=== PATIENT | female | born 1945 | race Caucasian/White ===

== ENCOUNTER → 2024-01-14 | Outpatient (CLI) | payer MEDICARE ==
[2024-01-14 13:24] VITALS: BP 154/82; PULSE 60; RESP 16; TEMP 97.6
--- NOTE | 2024-01-14 14:29 | P.SLEEP ---
History of Present Illness H&P Date: 01/14/24 This is a pleasant 78-year-old male female patient, referred to me for sleep apnea evaluation. The significant other is very much concerned about her having sleep apnea as the patient is having loud snoring. He also describes some unusual and erratic breathing at nighttime. He is not absolutely sure whether she quits breathing at nighttime. The patient's sleep is fragmented and the patient had to wake up at least 3-4 times the middle of the night to urinate. She goes to bed at around 10 PM wakes up 6 AM in the morning and she denies having any major hypersomnia or sleepiness during the day. Her current Stevens[place] score is at 8. No restlessness in her lower extremities. Denies waking up choking or gasping for air. No sleepwalking. No sleep talking. No anxiety. No panic attacks. No nocturnal heartburns. No symptoms of deficits with memory and concentration and attention. On average, the patient is sleeping around 7 to 8 hours. She sleeps on her side. She is an old milligram. She may take occasional naps during the day. Her current weight is stable and the patient denies having any significant weight gain over the years. She drinks alcohol socially. No substance abuse. No smoking. She has undergone previous right thoracotomy and decortication following a complicated right lung pneumonia. Her other comorbidities include hypertension hyperlipidemia. No issues with chronic pain. No personal or family history of obstructive sleep apnea. Review of Systems Constitutional: Reports fatigue Eyes: denies as per HPI, denies blurred vision, denies bulging eye, denies decreased vision, denies diplopia, denies discharge, denies dry eye, denies irritation, denies itching, denies pain, denies photophobia, denies loss of peripheral vision, denies loss of vision, denies tunnel vision/blind spots Ears: deny: decreased hearing, ear discharge, earache, tinnitus Ears, nose, mouth and throat: Reports as per HPI Breasts: absent: as per HPI, change in shape, gynecomastia, masses, nipple discharge, pain, skin changes, swelling Cardiovascular: Reports as per HPI Respiratory: Reports snoring Gastrointestinal: Reports as per HPI Genitourinary: Reports as per HPI Menstruation: Reports as per HPI Musculoskeletal: Reports as per HPI Musculoskeletal: absent: ankle pain, ankle stiffness, ankle swelling, as per HPI, elbow pain, elbow stiffness, elbow swelling, foot pain, foot stiffness, foot swelling, hand pain, hand stiffness, hand swelling, hip pain, hip stiffness, hip swelling, knee pain, knee stiffness, knee swelling, shoulder pain, shoulder stiffness, shoulder swelling, wrist pain, wrist stiffness, wrist swelling Integumentary: Reports as per HPI Neurological: Reports as per HPI Psychiatric: Reports as per HPI Endocrine: Reports as per HPI Hematologic/Lymphatic: Reports as per HPI Allergic/Immunologic: Reports as per HPI Past Medical History Past Medical History: Diabetes Mellitus, Hyperlipidemia, Hypertension Additional Past Medical History / Comment(s): over weight, diet controlled diabetic no meds History of Any Multi-Drug Resistant Organisms: None Reported Additional Past Surgical History / Comment(s): cataract surgery both eys Past Anesthesia/Blood Transfusion Reactions: No Reported Reaction Past Psychological History: No Psychological Hx Reported Smoking Status: Never smoker Past Alcohol Use History: Occasional Past Drug Use History: None Reported - Past Family History Mother Family Medical History: Cancer Father Family Medical History: Cancer, Hypertension Additional Family Medical History / Comment(s): parkinsons Medications and Allergies Home Medications and Allergies Comment(s): Medication includes enalapril 20 mg p.o. daily, Norvasc 10 mg p.o. daily, Zocor 10 mg p.o. daily, omeprazole 20 mg p.o. daily, Coreg 3.125 mg twice a day, vitamin D 2000 units daily and aspirin 81 mg p.o. daily. Physical Exam Vitals: Vital Signs Temp Pulse Resp BP Pulse Ox 01/14/24 13:23 97.6 F 60 16 154/82 97 Intake and Output 01/13/24 01/14/24 01/14/24 22:59 06:59 14:59 Other: Weight 87.543 kg The patient appeared well nourished and normally developed. Vital signs as documented. Calm and comfortable with a body mass index of 36.2 Head exam is unremarkable. No scleral icterus or corneal arcus noted. Neck is without jugular venous distension, thyromegaly, or carotid bruits. Carotid upstrokes are brisk bilaterally. The patient has a Mallampati class IV with crowding of the posterior pharynx. Lungs are clear to auscultation and percussion. Cardiac exam reveals the PMI to be normally sized and situated. Rhythm is regular. First and second heart sounds normal. No murmurs, rubs or gallops. Abdominal exam reveals normal bowel sounds, no masses, no organomegaly and no aortic enlargement. Extremities are nonedematous and both femoral and pedal pulses are normal. Examination of the skin revealed no evidence of significant rashes, suspicious appearing nevi or other concerning lesions. Neurologically, the patient is awake and alert and the patient does not have any focal neurological deficit. Cranial nerves are essentially intact. Assessment and Plan Plan: Loud snoring with questionable witnessed apneas as reported by significant other. Limited hypersomnia with an Stevens[place] score of 8. Rather mild obstructive sleep apnea. Body mass index of 36.2, no recent weight gain Chronic tiredness and fatigue Hypertension Hyperlipidemia Previous history of right lung decortication following a complicated right lobe pneumonia. Surgery was done back in 2016 Plan Overall clinical suspicion for sleep apnea is low. Will proceed with screening polysomnography Encourage sleeping on his side and keeping the head of the bed elevated Avoid alcohol drinking at least 3 hours prior to going to bed Maintain good sleep hygiene measures Maintain regular sleep schedule Will make further recommendations based on the results of the PSG Will follow Sleep Note - Sleep Data ESS Total: 8 - Sleep Note Sleep Note: Temperature: 97.6 F Pulse Rate: 60 Respiratory Rate: 16 Blood Pressure: 154/82 SpO2: 97 Height: 5 ft 1 in Weight: 87.543 kg BMI: Neck Circumference: 15
== END ==
LOC: 3 N SLEEP 13:09
PROVIDERS: ATTEND Internal Medicine Critical Care Medicine
DX: G47.33 Obstructive sleep apnea (adult) (pediatric) (principal); I10 Essential (primary) hypertension; E78.5 Hyperlipidemia, unspecified; J18.1 Lobar pneumonia, unspecified organism; Z87.09 Personal history of other diseases of the respiratory system
CPT/HCPCS: 99202

== ENCOUNTER 2024-01-30 19:34 | Outpatient (CLI) | payer MEDICARE ==
--- NOTE | 2024-02-25 05:57 | P.PCN ---
Date of Procedure: 01/30/24 Operative Findings: Polysomnography report Date of service is 01/30/2024 History This is a pleasant 78-year-old male female patient, referred to me for sleep apnea evaluation. The significant other is very much concerned about her having sleep apnea as the patient is having loud snoring. He also describes some unusual and erratic breathing at nighttime. He is not absolutely sure whether she quits breathing at nighttime. The patient's sleep is fragmented and the patient had to wake up at least 3-4 times the middle of the night to urinate. She goes to bed at around 10 PM wakes up 6 AM in the morning and she denies having any major hypersomnia or sleepiness during the day. Her current Lima score is at 8. No restlessness in her lower extremities. Denies waking up choking or gasping for air. No sleepwalking. No sleep talking. No anxiety. No panic attacks. No nocturnal heartburns. No symptoms of deficits with memory and concentration and attention. On average, the patient is sleeping around 7 to 8 hours. She sleeps on her side. She is an old milligram. She may take occasional naps during the day. Her current weight is stable and the patient denies having any significant weight gain over the years. She drinks alcohol socially. No substance abuse. No smoking. She has undergone previous right thoracotomy and decortication following a complicated right lung pneumonia. Her other comorbidities include hypertension hyperlipidemia. No issues with chronic pain. No personal or family history of obstructive sleep apnea. Pertinent physical findings Weight is 193 with a body mass index of 36.5 Technical description The patient was studied using a standard complex polysomnography protocol that included recording of the Lead II EKG, Central, occipital and frontal EEG, right and left outer canthus EOG, submental EMG, right and left anterior tibialis EMG, respiratory airflow by thermocouple and or pressure/flow transducer, respiratory efforts by abdominal and thoracic PVDF belts, oxygen saturation by cable oximetry. Position by observation synchronized the PSG. Equipment used: [employer]. Sleep architecture The total recording duration was 381 minutes and a total sleep time was 286.5 minutes. The wake after sleep onset time was 78 minutes. Overall sleep efficiency was 75.2%. Latency to sleep onset was 15 0.5 minutes. Latency to REM sleep was 122.5 minutes. The sleep architecture was characterized by 16.4% stage I, 67.7% stage II, 0.3% stage III and a total of 15.5% REM sleep. The total arousal index was 12.6 Respiratory summary The patient had total of 59 obstructive events of which 8 were obstructive apneas, 0 were mixed apneas and 51 obstructive hypopneas. The resulting AHI was 11.5. The obstructive respiratory events with worse during REM sleep with an AHI of 33.7 during REM. Oxygenation analysis The baseline pulse ox was 92% while awake, lowest oxygen saturation was 76% and this patient spent approximately 73 minutes of sleep time below pulse ox of 89% consistent with significant nocturnal oxygen desaturations and this accounted for 19% of the overall sleep time. Sleep continuity summary There was a total of 60 arousals with an index of 12.6. Respiratory arousal index was 2.5 Cardiac summary Average heart rate was 64 with a minimum heart rate of 60 and a maximum heart rate of 70 Periodic movements A total of 89 periodic limb movement activity with an index of 18.6. A total of 9 periodic limb movement activity with arousals with an index of 1.9 Assessment Mild obstructive sleep apnea with an AHI of 11.5, worse during REM sleep with an AHI of 33.7 during REM Severe nocturnal oxygen desaturations with a minimum pulse ox of 76% and the patient spent more than 1 hour of the sleep time below pulse ox of 89%. Loud snoring with questionable witnessed apneas as reported by significant other. Limited hypersomnia with an Lima score of 8. Body mass index of 36.2, no recent weight gain Chronic tiredness and fatigue Hypertension Hyperlipidemia Previous history of right lung decortication following a complicated right lobe pneumonia. Surgery was done back in 2016 Plan This is a case of mild obstructive sleep apnea. Nevertheless, the patient is encountering significant nocturnal oxygen saturations. I think it is reasonable to consider treating this patient with CPAP therapy. The results will be explained to the patient. The patient is going to be offered a CPAP titration to make sure to be complete elimination of the obstructive respiratory events and maintaining oxygen saturation above 90%. Encourage sleeping on his side and keeping the head of the bed elevated Avoid alcohol drinking at least 3 hours prior to going to bed Maintain good sleep hygiene measures Maintain regular sleep schedule Will follow-up with CPAP therapy post titration. Will follow
== END 2024-01-31 05:00 | disposition home or self-care (01) ==
LOC: 3 N SLEEP 19:34
PROVIDERS: ATTEND Internal Medicine Critical Care Medicine
DX: G47.33 Obstructive sleep apnea (adult) (pediatric) (principal); I10 Essential (primary) hypertension; E78.5 Hyperlipidemia, unspecified
CPT/HCPCS: 95810

== ENCOUNTER 2024-07-22 19:24 | Outpatient (CLI) | payer MEDICARE ==
--- NOTE | 2024-07-28 00:12 | P.PCN ---
Date of Procedure: 07/22/24 Operative Findings: CPAP titration summary Date of service is 07/22/2024 History This is a pleasant 78-year-old male female patient, referred to me for sleep apnea evaluation. The significant other is very much concerned about her having sleep apnea as the patient is having loud snoring. He also describes some unusual and erratic breathing at nighttime. He is not absolutely sure whether she quits breathing at nighttime. The patient's sleep is fragmented and the patient had to wake up at least 3-4 times the middle of the night to urinate. She goes to bed at around 10 PM wakes up 6 AM in the morning and she denies having any major hypersomnia or sleepiness during the day. Her current [place] score is at 8. No restlessness in her lower extremities. Denies waking up choking or gasping for air. No sleepwalking. No sleep talking. No anxiety. No panic attacks. No nocturnal heartburns. No symptoms of deficits with memory and concentration and attention. On average, the patient is sleeping around 7 to 8 hours. She sleeps on her side. She is an old milligram. She may take occasional naps during the day. Her current weight is stable and the patient denies having any significant weight gain over the years. She drinks alcohol socially. No substance abuse. No smoking. She has undergone previous right thoracotomy and decortication following a complicated right lung pneumonia. Her other comorbidities include hypertension hyperlipidemia. No issues with chronic pain. No personal or family history of obstructive sleep apnea. The patient underwent a polysomnography on 01/30/2024 and the patient was found to have obstructive sleep apnea with an AHI of 11.5, worse during REM sleep. Patient is coming in to undergo a CPAP titration study. Pertinent physical findings Weight is 193 with a body mass index of 35.3 Technical description The patient was studied using a standard complex polysomnography protocol that included recording of the Lead II EKG, Central, occipital and frontal EEG, right and left outer canthus EOG, submental EMG, right and left anterior tibialis EMG, respiratory airflow by thermocouple and or pressure/flow transducer, respiratory efforts by abdominal and thoracic PVDF belts, oxygen saturation by cable oximetry. Position by observation synchronized the PSG. Equipment used: [employer]. Stepwise CPAP titration was done to eliminate all obstructive respiratory events Sleep architecture The total recording duration was 382.5 minutes. The total sleep time was 298.0 minutes. The wake after sleep onset time was 66.5 minutes. The overall sleep efficiency was 77.9%. Sleep latency was 18 minutes. Latency to REM sleep was 22 minutes. Sleep architecture was characterized by 1.2% stage I sleep, 59.2% stage II sleep, 6.4% stage III sleep and a total of 33.2% REM sleep. The total arousal index was 11.7. CPAP titration summary The patient was started initially on CPAP pressure of 5 cm of water and the patient was gradually increased by comments of 1 cm of water to reach a maximum sacral pressure of 10 cm of water. I carefully reviewed the CPAP titration taking account the patient's sleep stage and body position. At a pressure of 7 cm of water, the patient had no major obstructive respiratory events and the patient had complete illumination of the obstructive apneas and hypopneas and the patient was able to maintain oxygen saturation above 90%. Note that this was a successful titration of the seizures were encountered and the patient was studied in a supine and sideways body position. Arousal events There was a total of 58 arousals with an index of 11.7. The respiratory arousal index was 0.4 Cardiac summary Average heart rate was 61 with a minimum heart rate 57 and a maximal heart rate of 65 and the cardiac rhythm was sinus. Periodic movements A total of 1 periodic limb movement with arousal with an index of 0.2 Assessment Mild obstructive sleep apnea with an AHI of 11.5, worse during REM sleep with an AHI of 33.7 during REM, the patient underwent a successful CPAP titration and the patient was titrated to CPAP pressure of 10 cm of water Severe nocturnal oxygen desaturations with a minimum pulse ox of 76% and the patient spent more than 1 hour of the sleep time below pulse ox of 89%, and oxyg en saturation improved with CPAP therapy and the patient was able to maintain oxygen level of above 90% and a target CPAP pressure of 10 cm of water. Loud snoring with questionable witnessed apneas secondary to obstructive sleep apnea. Limited hypersomnia with an Princeton score of 8. Body mass index of 35.3, no recent weight gain Chronic tiredness and fatigue Hypertension Hyperlipidemia Previous history of right lung decortication following a complicated right lobe pneumonia. Surgery was done back in 2016 Plan This is a case of mild obstructive sleep apnea, worse during REM sleep. The p atient will be started on a CPAP pressure of 10 cm of water with C-Flex of 3. The patient is going to be offered a [employer] fullface mask small size. The patient was seen back in the office in 30 to 90 days to assess clinical response and compliancy. This was a successful CPAP titration. Encourage sleeping on his side and keeping the head of the bed elevated Avoid alcohol drinking at least 3 hours prior to going to bed Maintain good sleep hygiene measures Maintain regular sleep schedule Will follow
== END 2024-07-23 05:25 | disposition home or self-care (01) ==
LOC: 3 N SLEEP 19:24
PROVIDERS: ATTEND Internal Medicine Critical Care Medicine
DX: G47.33 Obstructive sleep apnea (adult) (pediatric) (principal); I10 Essential (primary) hypertension; E78.5 Hyperlipidemia, unspecified; J18.9 Pneumonia, unspecified organism; R63.5 Abnormal weight gain; Z68.35 Body mass index [BMI] 35.0-35.9, adult; Z99.89 Dependence on other enabling machines and devices; Z87.09 Personal history of other diseases of the respiratory system; Z87.01 Personal history of pneumonia (recurrent)
CPT/HCPCS: 95811